=== PATIENT | male | born 1970 | race Caucasian/White ===

== ENCOUNTER 2017-07-06 10:28 | Outpatient (CLI) ==
--- NOTE | 2017-07-06 12:16 | DI ---
EXAM: Three views of the right shoulder HISTORY: Right shoulder pain. COMPARISON: None FINDINGS: There is no lytic or blastic lesion. There is degenerative change and osteophyte formation of the AC joint which is mild. The acromioclavicular joint is normal. The adjacent osseous structu res and soft tissues are unremarkable. 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
== END 2017-07-06 10:29 | disposition home or self-care (01) ==
LOC: RAD 10:28
PROVIDERS: ATTEND Internal Medicine
DX: M25.511 Pain in right shoulder (principal)

== ENCOUNTER 2017-09-30 18:17 | Emergency (ER) ==
[2017-09-30 18:24] VITALS: BP 141/87; TEMP 97.7; BMI 30.9
[2017-09-30] MEDS ORDERED: VANCOMYCIN 1 GM in SODIUM CHLORIDE 250 ML IV STA (18:35)
--- NOTE | 2017-09-30 18:38 | ED.PDOC ---
General ED Provider: Dr. JINNY RATLIFF Chief Complaint: Abscess Stated Complaint: abscess Time Seen by Physician: 18:18 Mode of Arrival: Walk-In Information Source: Patient Exam Limitations: No limitations Primary Care Provider: ZULY SHARIF Nursing and Triage Documentation Reviewed and Agree: Yes Reviewed sepsis parameters & appropriate labs ordered?: Yes System Inflammatory Response Syndrome: Not Applicable Sepsis Protocol: For patient's 13 years and over: Temp is 96.8 and below OR 101 and greater Pulse >90 BPM Resp >20/minute Acutely Altered Mental Status Are patient's symptoms suggestive of a new infection, such as: -Pneumonia -Skin, Soft Tissue -Endocarditis -UTI -Bone, Joint Infection -Implantable Device -Acute Abdominal Infection -Wound Infection -Meningitis -Blood Stream Catheter Infection -Unknown System Inflammatory Response Syndrome: Not Applicable (see photos) Skin Complaint Exam - Skin/Soft Tissue Complaint/Exam Onset/Duration: abscess forhead Symptoms Are: Still present (x5 days see photos) Initial Severity: Mild Current Severity: Mild Character: Reports: Redness, Swelling, Raised, Painful Aggravating: Reports: Touch Alleviating: Reports: None Associated Signs and Symptoms: Denies: Fever, Chills, Itching, Drainage, Bruising, Tenderness, Red streaks, Joint swelling Related Surgical History: Reports: None Recent Exposure to Others w/Similar Symptoms: No Skin Findings: Present: Pustules Differential Diagnoses: Abscess Review of Systems - Review Of Systems Constitutional: Reports: No symptoms Eyes: Reports: No symptoms Ears, Nose, Mouth, Throat: Reports: No symptoms Respiratory: Reports: No symptoms Cardiac: Reports: No symptoms GI: Reports: No symptoms : Reports: No symptoms Musculoskeletal: Reports: No symptoms Skin: Reports: No symptoms Neurological: Reports: Other (abscess) Endocrine: Reports: No symptoms Hematologic/Lymphatic: Reports: No symptoms All Other Systems: Reviewed and Negative Past Medical History - Past Medical History Previously Healthy: Yes Endocrine: Reports: None Cardiovascular: Reports: None Respiratory: Reports: None Hematological: Reports: None Gastrointestinal: Reports: None Genitourinary: Reports: None Neuro/Psych: Reports: None Musculoskeletal: Reports: None Cancer: Reports: None - Surgical History General Surgical History: Reports: None - Family History Family History: Reports: None - Social History Smoking Status: Former smoker Hx Substance Use: No Alcohol Screening: Occasionally - Immunizations Tetanus Shot up to Date: Yes (october 2016) Physical Exam - Physical Exam Appearance: Well-appearing, No pain distress, Well-nourished Eyes: BOBBY, EOMI, Conjunctiva clear ENT: Ears normal, Nose normal, Oropharynx normal Respiratory: Airway patent, Breath sounds clear, Breath sounds equal, Respirations nonlabored Cardiovascular: RRR, Pulses normal, No rub, No murmur GI/: Soft, Nontender, No masses, Bowel sounds normal, No Organomegaly Musculoskeletal: Normal strength, ROM intact, No edema, No calf tenderness Skin: Warm, Dry (pustule forhead 3 cm acrosss see photos) Neurological: Sensation intact, Motor intact, Reflexes intact, Cranial nerves intact, Alert, Oriented Psychiatric: Affect appropriate, Mood appropriate Critical Care Note - Critical Care Note Total Time (mins): 0 Course - Course Orders, Labs, Meds: Orders Category Date Time Status Vancomycin HCl [Vancomycin] 1 gm MEDS 09/30/17 18:35 Ordered 0.9 % Sodium Chloride [Sodium Chloride] 250 ml IV ONCE Medications Generic Name Dose Route Start Last Admin Trade Name Somq PRN Reason Stop Dose Admin Vancomycin HCl 1 gm/ Sodium 250 mls @ 250 mls/hr 09/30/17 18:35 Chloride IV 09/30/17 19:34 ONCE STA Vital Signs: Temp Pulse Resp BP Pulse Ox 09/30/17 18:18 97.7 F 72 16 141/87 H 96 Departure - Departure Time of Disposition: 18:38 Disposition: HOME SELF-CARE Discharge Problem: Abscess Instructions: Abscess (ED) Condition: Good Pt referred to PMD for follow-up: Yes IPMP verified?: No Additional Instructions: Please call your Family Physician as soon as possible to schedule a follow-up appointment. Prescriptions: Sulfamethoxazole/Trimethoprim [Bactrim Ds 800/160 mg] 1 tab PO Q12HR #14 tablet Allergies/Adverse Reactions: Allergies Penicillins Adverse Reaction (Verified 09/30/17 18:26) Home Medications: Ambulatory Orders Hydrocodone Bit/Acetaminophen [[place] 10-325] 1 each PO TID PRN 09/30/17 Sulfamethoxazole/Trimethoprim [Bactrim Ds 800/160 mg] 1 tab PO Q12HR #14 tablet 09/30/17 Disposition Discussed With: Patient, Family
== END 2017-09-30 20:03 | disposition home or self-care (01) ==
LOC: ED 18:17
DX: L02.01 Cutaneous abscess of face (principal)
CPT/HCPCS: 96365; 99283

== ENCOUNTER 2017-10-01 14:10 | Inpatient (IN) ==
[2017-10-01 14:31] VITALS: BMI 30.4
[2017-10-01] MEDS ORDERED: VANCOMYCIN 1,000 MG in SODIUM CHLORIDE 200 ML IV SCH (15:30)
[2017-10-01] MEDS: VANCOMYCIN 1.5 GM in SODIUM CHLORIDE 500 ML IV SCH (16:52)
[2017-10-01] MEDS ORDERED: DEXTROSE 5%-NS IV SOLUTION 1,000 ML IV SCH (17:00)
[2017-10-01] MEDS ORDERED: DEXTROSE 5%-LR IV SOLUTION 1,000 ML IV SCH (17:00)
[2017-10-01] MEDS: AVELOX PO SCH (17:02)
[2017-10-02] MEDS: VANCOMYCIN 1.5 GM in SODIUM CHLORIDE 500 ML IV SCH ×3 (00:03→20:32)
[2017-10-02] MEDS: AVELOX PO SCH (05:41)
--- NOTE | 2017-10-02 10:54 | HP ---
DATE OF SERVICE: 10/01/17 CHIEF COMPLAINT: Pain and swelling left forehead and face. SOURCE OF HISTORY: The patient HISTORY OF PRESENT ILLNESS: The patient about 5 days prior to this day had noted a small pimple area on the left forehead. It had increased in size and he came back home yesterday from work in [place]. He works in a [employer] all over the country. The patient yesterday had noted swelling in the left forehead and also on the face with pain. This patient was seen at the emergency room at [place] 09/30/17 and after examination was prescribed Vancomycin 1 gram intervenously as well Hydrocodone-Tylenol for pain. He was then seen at his primary provider office today and the patient was referred to my service. The patient during the examination had a pustular area on the left forehead with surround erythema and edema. Left eye has edema of the upper and lower lid and could barely open the eye. It also has swelling on the right side but less. There is also swelling in both facial areas. The area is markedly tender. The patient could not remember any injury while at work. The patient was alert and oriented. He was accompanied by his . I did advised him that I am going to unroof the pustule and maybe incise and drainage depending upon the findings initially. He was then asked to sign an incision and drainage. The area was then prepped and draped and the pustule was unroofed without any anesthetic. Culture and sensitivity both aerobes and anaerobes were done. Pressing on the surrounding tissue revealed small drainage from a rounded opening. It was then felt that incision and drainage is necessary. The area was then anesthetized with 1% Xylocaine after it was previously draped and prepped. A transverse incision was then made and more purulent material exuded through the opening. The incision was expanded and also a vertical incision was made. No further purulent drainage was noted and the cavity was irrigated with diluted Betadine. The cavity was packed with no gauze to keep the incision open. Dressing with 2x2 was then applied. The patient tolerated the procedure well and advised admission for further intervenous antibiotic administration. The patient as well as the was agreeable. PAST PERSONAL HISTORY: The patient had history of dyslipidemia as well as hypertension but the patient is not on any medication for this problem. He had a rotator cuff surgery of the right shoulder. Repair of the biceps tendon left and left hip replacement 2010. Also had a history of arthritis. This patient had previous colonoscopy in 2013, endoscopy 2012. 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 His last work was in [place] until he came home yesterday. He used to smoke but stopped and now chewing tobacco. MEDICATIONS: None. This patient was prescribed Hydrocodone-Acetaminophen 10-325 to be taken one three times a day as needed as well as Bactrim DS 1 twice a day yesterday. ALLERGIES: Penicillin REVIEW OF SYSTEMS: CONSTITUTIONAL: The patient has no fever or chills. He does have pain more so on the area of swelling and the left forehead. WEB SITE ADMIN: The patient has some headache but no visual disturbances. No episode of syncope or seizure. VISUAL: Denies any blurred vision and double vision or transient loss of vision. AUDITORY: Hearing is good and denies any tinnitus, pain or drainage. RESPIRATORY: No shortness of breath and no cough. CARDIOVASCULAR: Denies any chest pain or chest tightness. GASTROINTESTINAL: Appetite has decreased with the pain since yesterday otherwise unremarkably. GENITOURINARY: No pain or frequency or urination MUSCULOSKELETAL: The patient has no significant pain at this time but had surgery to the shoulder, rotator cuff right side and also left bicep tendon surgery. He had replacement of the hip left side. ENDOCRINE: Negative INTEGUMENT: The patient has a pustule in the left forehead with surround erythema and induration. He also has swelling on the bilateral facial areas. There is no rash anywhere except on the area of the face. HEMATOLOGIC: No history of prolonged bleeding PSYCHIATRIC: Affect is normal. PHYSICAL EXAMINATION: GENERAL: 47 year old male admitted to the hospital after incision and drainage of abscess left forehead. The patient is alert and oriented, not dyspneic or tachypneic. Not ill appearing. HEAD: Unremarkably. Scalp no edema except in the left forehead slightly on the right. Pustule measuring about 4-5mm in size. This was unroofed and culture and sensitivity of the purulent drainage was done both aerobes and anaerobes. The area was then further incised and drained and it was unroofed. FACE: Symmetrical with more swelling on the left than the right. No significant tenderness. EYES: Pupils equal/reactive to light. Conjunctivae not pale. Sclerae not icteric. MOUTH: Thickened mucosa from the tobacco chewing. THROAT: No inflammation, tumors or exudate. NECK: No masses. No bruit. No tenderness. No rigidity. CHEST: Symmetrical and equal with good expansion with no remarkably tenderness. LUNGS: Breath sounds are heard in both sides with no rales or wheezing. HEART: Audible and regular with good tones. No murmurs. ABDOMEN: Soft and no remarkably tenderness. No guarding. Bowel are active. No masses palpable. LOWER EXTREMITIES: Essentially symmetrical and equal with no significant edema and no tenderness in the calf muscles. UPPER EXTREMITIES: Symmetrical and equal ASSESSMENT: 1. Abscess left forehead, incised and drainage 2. Facial cellulitis secondary to the forehead abscess PLAN: 1. Admit for antibiotic management as well as blood culture, baseline hematology and chemistry plus procalcitonin. Will also have baseline renal panel. [facility]
--- NOTE | 2017-10-02 14:58 | PN ---
DATE OF SERVICE: 10/01/17 SUBJECTIVE: I did go to the patient's room in 104 and the patient denies any significant pain when I asked him. His left eye is now wider and the swelling or edema of the left upper and lower lid is less. The patient is medicated with Vancomycin 1.5 grams Q 12 hours. I had discussion with the PharmD Avelox is added to cover pseudomonas. Initially intended to give Garamycin but both medications Vancomycin and Garamycin has some renal issues and so Avelox was chosen until we get a culture then the antibiotics will be changed depending upon the results of the culture./ MTDD
[2017-10-02] MEDS: LOVENOX SUBCUT SCH (21:21)
[2017-10-03] MEDS: AVELOX PO SCH (05:38)
[2017-10-03] MEDS: LOVENOX SUBCUT SCH (09:30)
[2017-10-03] MEDS: VANCOMYCIN 1.5 GM in SODIUM CHLORIDE 500 ML IV SCH ×2 (09:43→20:26)
[2017-10-04] MEDS: AVELOX PO SCH (05:38)
[2017-10-04] MEDS: VANCOMYCIN 1.5 GM in SODIUM CHLORIDE 500 ML IV SCH (09:32)
[2017-10-04 10:08] VITALS: BP 144/89; TEMP 97.4
[2017-10-04] MEDS: LOVENOX SUBCUT SCH (10:11)
[2017-10-04] MEDS ORDERED: VANCOMYCIN 1.25 GM in SODIUM CHLORIDE 250 ML IV SCH (21:00)
--- NOTE | 2017-10-20 08:54 | DS ---
DATE OF SERVICE: 10/04/17 PATIENT IDENTIFICATION: This is a 47 year old male admitted to the hospital after incision and drainage of abscess of the forehead with cellulitis involving the right and left eye, as well as right and left facial area. The patient noted a pimple on the left forehead about five days prior to admission while he was in [place] at work. The patient does use a hardhat. The patient remembered after the incision and drainage and change of dressing that he did indeed have a nodule in the left forehead which had been there for sometime and very small. The area became more tender and more redness and swelling on the day he returned to [place] from [place]. He presented to the emergency room on 09/30/17 and was given a Vancomycin IV and prescribed Bactrim DS one twice a day. He was seen at his primary care physicians office and subsequently referred to me. The patient on examination had a pustule with surrounding erythema and swelling and induration with edema of both upper and lower lids, left and right, as well as facial edema, left more than right. Culture and sensitivity was obtained at the office and the patient was then admitted for IV antibiotics administration. The patient was diagnosed abscess left forehead, facial and lower and upper lid edema. HOSPITAL COURSE: The patient's CBC showed normal WBC, normal CMP, Procalcitonin less than 0.05. Subsequent chemistry showed no significant changes. He was given Vancomycin 1 gram every 12 hours and the pharmacy tech had increased it to 1 1/2 grams every 12 hours. Moxifloxacin 400 mg was also added to the regimen. The culture of the abscess drainage was negative for any growth on the first 24 hours, as well as 48 and also on the day of discharge. The patient 's temperature had remained normal throughout his hospital stay. His appetite had remained well and good consuming 100% of the meals. The swelling on the forehead, as well as the upper and lower lids of both eyes and face has gradually decreased and resolved at the time of discharge. The patient's vital signs at the time of discharge consisted of a temperature of 97.4, pulse of 62, blood pressure 144/89, respiratory rate 18, oxygen saturation 98 at room air. The dressing was changed and was packed with a piece of 2 X 2 followed by a Band-aid. LUNGS: Clear to auscultation in both sides. HEART: Audible and regular with no murmurs. LOWER EXTREMITIES: He denied any tenderness in both lower extremities. I did advise him that I would like to follow him at the office for this problem and then return him to Dr. Koehler after it is completed. I advised him to see me this coming Thursday at the office so I could change the dressing. I further informed him that there was no bacterial growth on the abscess, but I do not believe that an antibiotic would be necessary. I did advise him, however, to let me know if there is any resurgence of the swelling or redness on the forehead, face or eyelids. I provided him with the phone number of the physician's answering service in [place] if he needed to get in touch with me. During the course of the change of dressing a greenish material was obtained, rounded and appeared to be a content of the sebaceous cyst. The patient's problem then is felt to be secondary to an irritated sebaceous cyst resulting to the abscess and cellulitis. There was no growth in the abscess on culture and sensitivity, both aerobes and anaerobes and no growth also on blood culture. FINAL DIAGNOSES: 1. SEBACEOUS CYST WITH HISTORY OF ABSCESS LEFT FOREWARD 2. CELLULITIS SECONDARY TO #1, RESOLVED OR RESOLVING MTDD
== END 2017-10-04 12:48 | disposition home or self-care (01) | DRG 607 ==
LOC: MEDSURG A 14:10
PROVIDERS: ADMIT General Practice; ATTEND General Practice
PROC: 0H91XZX Drainage of Face Skin, External Approach, Diagnostic (ICD-10-PCS; principal; 2017-10-01)
DX: L72.3 Sebaceous cyst (principal); L03.211 Cellulitis of face; R51 Headache
CPT/HCPCS: 36415; 80053; 80202; 81001; 84145; 85025; 87040

== ENCOUNTER 2017-10-01 14:31 | Outpatient (CLI) ==
[2017-09-30 18:24] VITALS: BMI 30.9
== END 2017-10-01 14:32 | disposition home or self-care (01) ==
LOC: FCC-LAB 14:31
PROVIDERS: ATTEND General Practice
DX: L02.91 Cutaneous abscess, unspecified (principal)
CPT/HCPCS: 87070; 87075

== ENCOUNTER 2022-03-14 09:59 | Observation (INO) ==
[2022-03-14] MEDS ORDERED: TYLENOL PO PRN (11:36)
[2022-03-14] MEDS ORDERED: ATROPINE SULFATE PFS IVP PRN (11:36)
[2022-03-14] MEDS ORDERED: NITROSTAT SL PRN (11:36)
[2022-03-14 11:55] VITALS: BMI 35.3
[2022-03-14] MEDS ORDERED: NORCO 10-325 PO PRN (11:55)
[2022-03-14 12:11] LABS: BASOPHILS # (AUTO) 0.1 K/uL (0-0.2); BASOPHILS % (AUTO) 0.8 % (0.0-3.0); EOSINOPHILS # (AUTO) 0.2 K/ul (0.0-0.7); EOSINOPHILS % (AUTO) 2.6 % (0.0-7.0); HEMOGLOBIN 15.1 g/dl (14.0-18.0); IMMATURE GRANULOCYTE % (AUTO) 0.3 % (0.0-5.0); LYMPHOCYTES # (AUTO) 1.6 K/uL (0.60-3.4); LYMPHOCYTES % (AUTO) 26.1 (10.0-50.0); MEAN CORPUSCULAR HEMOGLOBIN 29.8 pg (27.0-31.0); MEAN CORPUSCULAR HGB CONC 34.3 (31.8-35.4); MEAN CORPUSCULAR VOLUME 86.8 fl (80.0-94.0); MONOCYTES # (AUTO) 0.3 K/uL (0.4-2.0); MONOCYTES % (AUTO) 5.2 (0-10); PLATELET COUNT 260 10^3/uL (140-440); RDW COEFFICIENT OF VARIATION 12.3 % (11.6-14.8); RED BLOOD COUNT 5.07 10^6/ul (4.70-6.10)
[2022-03-14 12:27] LABS: ALANINE AMINOTRANSFERASE 38.2 U/L (0-50); ALBUMIN 4.43 g/dL (3.5-5.0); ALKALINE PHOSPHATASE 61.6 U/L (38-126); ASPARTATE AMINO TRANSFERASE 34.5 U/L (17-59); BILIRUBIN,TOTAL 0.83 mg/dL (0.2-1.3); BLOOD UREA NITROGEN 15.9 mg/dL (9-20); CALCIUM 9.21 mg/dL (8.4-10.2); CARBON DIOXIDE 26.3 mmol/L (22-30.0); CHLORIDE 105.5 mmol/L (98-107); CREATINE KINASE 227.6 U/L (55-170); CREATININE 0.92 mg/dL (0.60-1.10); GLUCOSE 144.4 mg/dL (74-106); POTASSIUM 3.96 mmol/L (3.5-5.1); SODIUM 139.5 mmol/L (134.5-145); TOTAL PROTEIN 7.09 g/dL (6.3-8.2)
[2022-03-14] MEDS ORDERED: TORADOL IVP ONE (12:30)
[2022-03-14] MEDS ORDERED: DECADRON IM ONE (12:30)
[2022-03-14 12:41] LABS: TROPONIN I < 0.012 ng/ml (0.0000-0.120)
--- NOTE | 2022-03-14 13:13 | DI ---
EXAM: One-view chest HISTORY: Shortness of breath TECHNIQUE: Single frontal view the chest was obtained. FINDINGS: The heart is normal size. Lungs are clear. The pulmonary vasculature appears normal. Th ere is no pleural effusion. The osseous structures are normal. IMPRESSION: No active cardiopulmonary disease.
[2022-03-14 13:54] LABS: BILIRUBIN,URINE Negative (NEGATIVE); CLARITY,URINE Clear (CLEAR); COLOR,URINE Yellow (YELLOW); GLUCOSE, URINE (UA) Negative (NEGATIVE); KETONES,URINE Negative (NEGATIVE); LEUKOCYTE ESTERASE ,URINE Negative (NEGATIVE); NITRITE,URINE Negative (NEGATIVE); PROTEIN,URINE Negative (NEGATIVE); URINE, BLOOD Negative (NEGATIVE)
[2022-03-14] MEDS: NORCO 10-325 PO SCH ×3 (13:55→20:52)
[2022-03-14] MEDS ORDERED: INDOCIN PO PRN (15:00)
--- NOTE | 2022-03-14 15:09 | US ---
EXAMINATION: Carotid Doppler ultrasound HISTORY: Dizziness. COMPARISON: None. TECHNIQUE: Multiple sonographic images were obtained of the bilateral carotid vasculature using olea scale and color/spectral Doppler analysis. FINDINGS: Plaque distribution: Bilateral common carotid arteries with extension through the carotid bulbs into the proximal internal carotid arteries. The Arterial velocities measured in centimeters per second. Right common carotid artery peak systolic velocity: 99.0 Right internal carotid artery peak systolic velocity: 102.7 Right internal carotid artery end diastolic velocity: 32.6 Right ICA/CCA ratio: 1.0 Right external carotid artery peak systolic velocity: 111.7. Left common carotid artery peak systolic velocity: 103.9 Left internal carotid artery peak systolic velocity: 129.5 Left internal carotid artery end diastolic velocity: 36.3 Left ICA/CCA ratio: 1.2 Left external carotid artery peak systolic velocity: 142.3 Vertebrals: - Right: Antegrade flow with normal waveform. - Left: Antegrade flow with normal waveform. Society of Radiologists in Ultrasound (SRU) consensus statement (Radiology 2003; 229:340-346. DOI 10 .[id number].[id number]) was used to estimate internal carotid artery stenosis. IMPRESSION: 1. Less than 50% stenosis of the right internal carotid artery. 2. Less than 50% stenosis of the left internal carotid artery. 3. Right Vertebral Artery: Antegrade. 4. Left Vertebral Artery: Antegrade.
[2022-03-14] MEDS: VALIUM PO SCH ×2 (15:16→20:52)
[2022-03-14] MEDS: ANTIVERT PO SCH ×2 (15:17→20:51)
[2022-03-14] MEDS: NAPROSYN PO SCH (17:42)
[2022-03-14 19:52] LABS: CREATINE KINASE 208.3 U/L (55-170)
[2022-03-14 20:05] LABS: TROPONIN I < 0.012 ng/ml (0.0000-0.120)
[2022-03-14] MEDS ORDERED: ZETIA PO SCH (21:00)
[2022-03-14] MEDS ORDERED: PRAVACHOL PO SCH (21:00)
[2022-03-15] MEDS: VALIUM PO SCH (04:35)
[2022-03-15 05:14] LABS: BASOPHILS % (AUTO) 0.2 % (0.0-3.0); EOSINOPHILS % (AUTO) 0.2 % (0.0-7.0); HEMATOCRIT 44.5 % (42.0-52.0); HEMOGLOBIN 15.5 g/dl (14.0-18.0); IMMATURE GRANULOCYTE % (AUTO) 0.2 % (0.0-5.0); LYMPHOCYTES # (AUTO) 1.5 K/uL (0.60-3.4); MEAN CORPUSCULAR HGB CONC 34.8 (31.8-35.4); MEAN CORPUSCULAR VOLUME 86.2 fl (80.0-94.0); MONOCYTES # (AUTO) 0.5 K/uL (0.4-2.0); MONOCYTES % (AUTO) 4.5 (0-10); NEUTROPHILS # (AUTO) 8.1 K/ul (2.0-6.9); NEUTROPHILS % (AUTO) 79.9 % (42.2-75.2); PLATELET COUNT 275 10^3/uL (140-440); RED BLOOD COUNT 5.16 10^6/ul (4.70-6.10); WHITE BLOOD COUNT 10.16 K/ul (4.2-10.2)
[2022-03-15 05:28] LABS: ALANINE AMINOTRANSFERASE 35.3 U/L (0-50); ALBUMIN 4.3 g/dL (3.5-5.0); ALKALINE PHOSPHATASE 68.7 U/L (38-126); BILIRUBIN,TOTAL 0.74 mg/dL (0.2-1.3); BLOOD UREA NITROGEN 15.9 mg/dL (9-20); CALCIUM 9.4 mg/dL (8.4-10.2); CARBON DIOXIDE 25.1 mmol/L (22-30.0); CHLORIDE 107.3 mmol/L (98-107); CREATININE 0.89 mg/dL (0.60-1.10); GLUCOSE 117.7 mg/dL (74-106); POTASSIUM 4.28 mmol/L (3.5-5.1); TOTAL PROTEIN 7.1 g/dL (6.3-8.2)
[2022-03-15 05:36] VITALS: BP 135/92; TEMP 97.9
[2022-03-15] MEDS ORDERED: TYLENOL PO PRN (07:30)
[2022-03-15] MEDS: NAPROSYN PO SCH (08:49)
[2022-03-15] MEDS: NORCO 10-325 PO SCH (08:50)
[2022-03-15] MEDS: ANTIVERT PO SCH (08:50)
[2022-03-15] MEDS ORDERED: PRAVACHOL PO SCH (09:00)
[2022-03-15] MEDS ORDERED: ZETIA PO SCH (09:00)
--- NOTE | 2022-03-17 08:27 | ECHOSTRESS ---
Date of Exam: 03/15/2022 Ordering Physician: DR. ZULY SHARIF Reason for Echo: SOA WITH CHEST PAIN, DIZZINESS, STRESS TEST--NO ISCHEMIA M-Mode Normal Adult Results LV Dimensions Normal Adult Results AoV Opening excursions >1.6 LVEDD-base- 3.5-5.8 Ao root dimensions 2.0-3.7 LVESD-base- 3.1-4.6 L. Atrium dimensions 1.9-3.8 Post. Wall thickness 0.8-1.1 IV septum (thickness) 0.7-1.2 Post. Wall excursion 0.72-1.3 Septal motion Systolic motion R. Ventricular cavity 1.5-2.0 LVEF 60% Paradoxical septal wall motion 2-D: NORMAL LEFT VENTRICLE CONTRACTILITY--RESTING AND POST EXERCISE M-MODE: MV: AV: TV: PV: CHAMBER SIZE: WALL MOTION: NORMAL LEFT VENTRICLE CONTRACTILITY--RESTING AND POST EXERCISE PERICARDIUM: INTERPRETATION: 1. NORMAL LEFT VENTRICLE CONTRACTILITY--RESTING AND POST EXERCISE MTDD
--- NOTE | 2022-03-17 08:43 | STRESSECHO ---
Date of Test: 03/15/2022 Ordering Physician: DR. ZULY SHARIF Occupation:[employer] Reason for Exam: SOA WITH CHEST PAIN, DIZZINESS Smoking History: EX SMOK[employer]/ QUIT 25 YRS AGO Height: 72" Weight: 260 LBS Target Heart Rate: 143/169 Current Medications: INDOMETHACIN, NORCO, NAPROXEN, ZETIA, PRAVACHOL Resting EKG: SINUS RHYTHM/ NO ACUTE CHANGES Target Heart Rate: 143/169 S-T SEGMENT STAGE MPH/GRADE HEART RATE BPM BLOOD PRESSURE MMHG RHYTHM +/- ELEVATION DEPRESSION SYMPTOMS AT REST 71 BPM 118/78 MMHG SR X NONE 1 1.7/10% 113 BPM 124/60 MMHG SR X NONE 2 2.5/12% 136 BPM 164/68 MMHG SR X NONE 3 3.4/14% 4 4.2/16% 5 5.0/18% Immediately After 148 BPM SR X SHORT OF AIR Minutes Post Exercise 1" SR X NONE Minutes Post Exercise 5" 90 BPM 120/70 MMHG SR X NONE DURATION OF EXERCISE: 6:21 MAXIMUM HEART RATE REACHED: 148 BPM REASON FOR TERMINATION: SHORT OF AIR 98% OXYGEN SATURATION WITH EXERCISE ON ROOM AIR METS 8.0 INTERPRETATION: 1. TEST NEGATIVE FOR ISCHEMIC ST-T WAVE CHANGES 2. NO CHEST PAIN OR DISCOMFORT 3. BLOOD PRESSURE RESPONSE: ADEQUATE 4. NO ARRHYTHMIAS NORMAL LEFT VENTRICLE CONTRACTILITY--RESTING AND POST EXERCISE MTDD
--- NOTE | 2022-03-17 08:53 | ECHO2D ---
Date of Exam: 03/15/2022 Ordering Physician: DR. ZULY SHARIF Room #: [id number] Reason for Echo: SOA WITH CHEST PAIN, DIZZINESS M-Mode Normal Adult Results LV Dimensions Normal Adult Results AoV Opening excursions >1.6 >1.6 LVEDD-base- 3.5-5.8 5.0 Ao root dimensions 2.0-3.7 3.8 LVESD-base- 3.1-4.6 L. Atrium dimensions 1.9-3.8 4.3 Post. Wall thickness 0.8-1.1 1.2 IV septum (thickness) 0.7-1.2 1.3 Post. Wall excursion 0.72-1.3 NORMAL Septal motion NORMAL Systolic motion R. Ventricular cavity 1.5-2.0 NORMAL LVEF 60% 60% Paradoxical septal wall motion NORMAL 2-D : 2-D M Mode Echocardiogram was performed using apical four chamber and left parasternal long and short axis views. Mitral, tricuspid and aortic valves appear to be normal. Contractility of the left ventricle seems to be normal, so is the cavity size. ENLARGED LEFT ATRIAL CAVITY SIZE. Aortic root appears to be normal. There is no pericardial effusion. There is no thrombus noted in the left ventricle or left atrial cavity. M-MODE: MV: NORMAL AV: NORMAL TV: NORMAL PV: NORMAL CHAMBER SIZE: ENLARGED LEFT ATRIAL CAVITY WALL MOTION: NORMAL PERICARDIUM: NORMAL INTERPRETATION: 1. LEFT VENTRICLE HYPERTROPHY WITH ENLARGED LEFT ATRIAL CAVITY 2. NORMAL VALVES 3. NORMAL LEFT VENTRICLE CONTRACTILITY AND LEFT VENTRICLE SIZE MTDD
--- NOTE | 2022-03-19 08:42 | PN ---
DATE OF SERVICE: 03/15/22 SUBJECTIVE: 51 year old white male hospitalized with chest pain which was equivocal for coronary insufficiency and had precordial pain which was more like dull ache going through to the back, no radiating to the jaw or the left arm and also had dizziness more so with head movement with sweating. The patient was seen and examined at [place] emergency room. He had work up for any acute event was negative and he was instructed to see one of the [employer]. REVIEW OF SYSTEMS: CONSTITUTIONAL: No night sweats. No fatigue, malaise, lethargy. No fever or chills. HEENT: Eyes: No visual changes. No eye pain. No eye discharge. ENT: No runny nose. No epistaxis. No sinus pain. No sore throat. No odynophagia. No congestion. RESPIRATORY: No cough, no congestion. No hemoptysis. No shortness of breath. CARDIOVASCULAR: No angina symptoms. No CHF symptoms. No atypical chest pain for CAD. No palpitations. No PND. No orthopnea. GASTROINTESTINAL: No abdominal pain. No nausea or vomiting. No diarrhea or constipation. No hematemesis. No hematochezia. GENITOURINARY: No urgency. No frequency. No dysuria. No hematuria. No obstructive symptoms. No discharge. No pain. No significant abnormal bleeding. MUSCULOSKELETAL: No musculoskeletal pain; no joint swelling. NEUROLOGICAL: No headache. No neck pain. No syncope. No seizures. No dizziness. PSYCHIATRIC: Not anxious. No depression. No suicidal thoughts. No homicidal thoughts. SKIN: No rash. No lesions. No wounds. ENDOCRINE: No unexplained weight loss. No weight gain. HEMATOLOGIC/LYMPHATIC: No anemia. No purpura. No petechiae. No prolonged or excessive bleeding. No palpable lymph nodes. PHYSICAL EXAMINATION: GENERAL: The patient is oriented to time, place and person. VITAL SIGNS: Temperature 97.9, pulse 58, respiratory rate 18, blood pressure 135/90 and pulse ox 97%. HEENT: Head normocephalic, atraumatic. Eyes: Extraocular muscles are intact. Pupils are equal, round and reactive to light and accommodation. Ears: No lesions. Nose appeared normal. Throat: No exudate or erythema. NECK: Supple. No JVD, no carotid bruit. No lymphadenopathy or thyromegaly. LUNGS: Clear to auscultation. Percussion note normal. Chest symmetrical. HEART: S1, S2, no S3. No murmurs. No cyanosis or clubbing. No ascites. Pulses: Dorsalis pedis and posterior tibial pulses +1 to +2 bilaterally. ABDOMEN: Soft. Nontender. Bowel sounds active. No CVA tenderness. No mass felt. EXTREMITIES: No edema. Full range of motion of all extremities, equal. NEUROLOGIC: No focal deficit. Cranial nerves II through XII are grossly intact. No headache. No double vision. SKIN: Not dry. Intact. Turgor - normal. LYMPHATIC: No palpable lymph nodes/no lymphedema. MUSCULOSKELETAL: Normal joints with no swelling. Muscle tone is normal. LABS: Hgb 17.5, hct 44, WBC 10,000 normal differential, creatinine 0.8, BUN 15, potassium 4.2.Echocardiogram done this morning which showed LVH with normal LV contractility, stress echo was negative for ischemia. ASSESSMENT: 1. Chest pain seems to have resolved, telemetry strips does not show any ST-T wave changed. EKG sinus rhythm. no acute changes, unchanged. Cardiac markers negative. PLAN: 1. The patient is to be discharged home. 2. Advised to discontinue Naprosyn 3. Take Tylenol as needed 4. The patient was given Antivert and Valium 5. The patient is to see me on Thursday morning at 10am. is present in the room, until then he is not supposed to work CONDITION: Stable TIME SPENT: More than 30 minutes. Plan and coordination of the patient's care discussed in the presence of nurse. BRYAN
--- NOTE | 2022-03-19 09:20 | DS ---
DATE OF SERVICE: 03/15/22 FINAL DIAGNOSIS: 1. Chest pain seems to be noncardiac 2. History of hypertension 3. History of dyslipidemia 4. Family history of high blood pressure 5. Degenerative joint disease DISCHARGE INSTRUCTIONS: Discharge home. No work until released after Thursday. Thursday to be seen in the office at 10am. MEDICATIONS AT DISCHARGE: [place] Zetia Indomethacin Pravastatin NEW PRESCRIPTIONS: Valium 2mg PO TID for 4-5 days. Meclizine 12.5mg PO TID DISCONTINUED MEDICATIONS: Naproxen DIET INSTRUCTIONS: Regular ACTIVITY: As tolerated. HOSPITAL COURSE: 51 year old white male seen in the office after being seen at [place] emergency room with chest pain. The patient's chest pain was equivocal. Negative workup at [place] with negative cardiac markers and EKGS. Supposed to see Dr. Osman in [place], [employer] in 2-3 days. The patient decided to come to the office and call and was seen on Thursday and was hospitalized for further workup. The patient was monitored. His cardiac markers times two are negative for any acute event. EKG times two negative. Telemetry did not reveal any ST-T wave changes. His echocardiogram done showed LVH with enlarged LA cavity with normal LV contractility. His stress test has mets of 8 with negative EKG and also post exercise echocardiogram was negative with normal LV contractility. The patient was explained about angina. Chest pain continues advised to go to the nearest emergency room. On discharge the patient had no chest pain. He was given 1/2cc of Decadron and Toradol 15mg on the day prior. Condition at the time of discharge is stable. The patient's BMI is 35. Advised to lose weight. Coronary artery disease and risk factors discussed and how to modify them. The patient is to be seem as an outpatient on Thursday at 10am. Until then he is not supposed to go to work. CONDITION: Stable. TIME SPENT: More than 60 minutes. MTDD
--- NOTE | 2022-03-19 09:21 | PN ---
03/14/22: Level 5 03/15/22: D as in discharge. MTDD
--- NOTE | 2022-03-19 09:25 | HP ---
DATE OF SERVICE: 03/14/22 REASON FOR HOSPITALIZATION/HISTORY OF PRESENT ILLNESS: Saw ER MD at [facility] 03/13/22 with complaints of chest pain precordial of 4-5 minutes duration with dizziness, shortness of breath, sweating-things were spinning around. Pain in the chest precordial, sharp and dull. Increased jaw and left arm and back. The pain is still there some since yesterday. Lately tired. All records reviewed. PAST MEDICAL HISTORY: DJD L spine/Cervical spine Hypertension Dyslipidemia Neuropathy Fatty liver Gout PAST SURGICAL HISTORY: Hip replacement Cyst near right eye REVIEW OF SYSTEMS: CONSTITUTIONAL: No fever, no fatigue. HEENT: No sinus drainage, no sore throat. RESPIRATORY: No cough, no congestion. CARDIOVASCULAR: Atypical chest pain for coronary artery disease. No angina, CHF symptoms, palpitations. Shortness of breath. GASTROINTESTINAL: No melena or abdominal pain. No GERD. GENITOURINARY: No hematuria, no prostatism, no polyuria. PSYCHOSOCIAL REHABILITATION COUNSELOR: No blackout, no dizziness, no headache, no double vision. MUSCULOSKELETAL: Osteoarthritis pain, no joint swelling. ENDOCRINE: No weight loss, no weight gain. SKIN: Not dry, no rash. PSYCHIATRIC: Anxious, no depression, no suicidal thoughts, no homicidal thoughts. SOCIAL HISTORY: Marital Status: . Alcohol Usage: No. Tobacco Usage: No. FAMILY HISTORY: Father Mother Brother 3 MEDICATIONS: [place] 10-325mg TID Pravastatin 40mg daily Zetia 10mg daily CBD Indocin 50mg PRN Ultram 50mg daily PRN Lyrica 100mg TID Refused COVID vaccine ALLERGIES: Penicillin Crestor All statins PHYSICAL EXAMINATION: V/S: GENERAL APPEARANCE: Oriented times three. HEENT: Normal. NECK: No JVP, no bruits. RESPIRATORY: Lungs are clear. CARDIOVASCULAR: S1, S2, no S3, no murmur. No cyanosis, clubbing. No ascites. GI/ABDOMEN: No tenderness. Bowel sounds are active. EXTREMITIES: edema, pulses +1, equal. PSYCHOSOCIAL REHABILITATION COUNSELOR: Deep tendon reflexes, sensory, motor and gait all normal. RECTAL: Refused/PROSTATE:01/30/22 (0.5). ASSESSMENT: 1. Chest pain, atypical/typical with shortness of breath 2. Dizziness/sweaty, ventricular dysfunction 3. Severe DJD L spine/cervical spine 4. Hypertension 5. Dyslipidemia 6. Fatty liver 7. history of left hip surgery/Left elbow surgery Dr. Galloway 8. Neuropathy 9. COVID 06/30 10.History of Gout 11.Family history of heart disease 12.Fatty liver 13.Status post carpel tunnel syndrome PLAN: 1. Admit observation 2. Routine telemetry orders 3. D-Dimer 4. Carotid scan 5. Echo and stress echo 6. Valium 2mg PO TID daily 7. Antivert 12.5mg PO TID daily 8. 1/2cc Decadron IM 9. Toradol 15mg IV once 10.[place] 10-325 PO TID aily TIME SPENT: More than 70 minutes. MTDD
== END 2022-03-15 11:25 | disposition home or self-care (01) ==
LOC: MEDSURG A 09:59 → LAB 09:59
PROVIDERS: ADMIT Internal Medicine; ATTEND Internal Medicine
DX: R05.9 Cough, unspecified; R07.89 Other chest pain; M51.36 Other intervertebral disc degeneration, lumbar region; K76.0 Fatty (change of) liver, not elsewhere classified; Z51.81 Encounter for therapeutic drug level monitoring; E78.5 Hyperlipidemia, unspecified; Z82.49 Family history of ischemic heart disease and other diseases of the circulatory system; M19.90 Unspecified osteoarthritis, unspecified site; I51.7 Cardiomegaly; Z79.1 Long term (current) use of non-steroidal anti-inflammatories (NSAID); Z79.899 Other long term (current) drug therapy; R42 Dizziness and giddiness; I50.1 Left ventricular failure, unspecified; Z20.822 Contact with and (suspected) exposure to COVID-19